=== PATIENT | female | born 1985 | race Two or more races ===

== ENCOUNTER 2022-09-15 23:21 | Emergency (ER) | payer OTHER ==
[~2022-09-15] VITALS: Ht 165.1 cm; Wt 63.5 kg
[2022-09-16] MEDS ORDERED: VISTARIL25 MG PO (05:32)
[2022-09-16] MEDS ORDERED: CELEBREX200MG PO (05:32)
== END 2022-09-16 05:41 | disposition home or self-care (01) ==
LOC: ER 23:21
DX: M94.0 Chondrocostal junction syndrome [Tietze] (principal); Z88.0 Allergy status to penicillin